=== PATIENT | male | born 1970 | race Caucasian/White ===

== ENCOUNTER → 2018-02-03 | Outpatient (CLI) | payer OTHER ==
--- NOTE | 2018-02-05 13:20 | TST ---
[place] [address] [facility] STRESS TEST Name: CARLOS CAUSEY Room: [facility]#: [id number] Admission: 02/03/18 Attend Phys: Rowan Davis Discharge: Date of : 66 Date of Service: 02/03/18 1636 Report #: [id number] THIS REPORT FOR: //name// CC: Rowan Gonzalez NP REFERRING PROVIDER: Rowan Gonzalez. PROCEDURE: Standard Henry protocol exercise stress test. INDICATION: Chest pain and abnormal EKG. CARDIAC RISK FACTORS: Age greater than 45 and hypertension. The patient exercised per standard Henry protocol for 9 minutes and 41 seconds. Exercise was terminated due to fatigue. Did not have chest pain. The resting blood pressure was 134/93 mmHg with a resting pulse rate of 63 beats per minute. At peak exercise, the blood pressure was 189/86 mmHg with a pulse rate of 158 beats per minute. In recovery, the blood pressure was 135/95 with a recovery heart rate of 84 beats per minute. The patient achieved 92% of the age predicted maximum heart rate and an energy expenditure equivalent to 11.23 METS. The baseline 12-lead electrocardiogram shows sinus rhythm without significant ST or T-wave abnormalities. EKGs obtained during and post-exercise showed sinus rhythm and sinus tachycardia with no significant ST or T-wave changes when compared to baseline. There were no stress induced arrhythmias. IMPRESSIONS: 1. Clinical response: Nonischemic. 2. EKG response: Nonischemic. CONCLUSION: This standard Henry protocol exercise stress test shows no evidence of stress-induced ischemia. <ELECTRONICALLY SIGNED> By: Elio Hill MD, FACC 02/05/18 1320 1636 [id number] Elio Hill MD, FACC /nt
== END ==
LOC: M.CRD 01-23 13:00
DX: R07.9 Chest pain, unspecified (principal); R94.31 Abnormal electrocardiogram [ECG] [EKG]